=== PATIENT | female | born 1945 | race Caucasian/White ===

== ENCOUNTER 2020-12-14 09:28 | Emergency (ER) | payer MEDICARE, OTHER ==
[~2020-12-14] VITALS: Ht 162.6 cm; Wt 48.6 kg
--- NOTE | 2020-12-14 10:11 | NUR ---
PT WITH R FOOT SWELLING EXTENDING UP TO KNEE SINCE OCTOBER. PT SEEN AT ON 11/15, RECEIVED AND TOOK CEPHALEXIN PRESCRIBED WITH IMPROVEMENT OF SWELLING AND REDNESS. PT STATES SWELLING AND PAIN WORSENED YESTERDAY. PT ALSO REPORTS OF INTERMITTENT HAND PAIN AND SWELLING IN JOINTS. SON REPORTS OF PT "LOSING A LOT OF WEIGHT". PT STATES "I DON'T EAT A LOT". PT DENIES SOB OR CP. PT DENIES MEDICAL HX OR SURGERIES. PT HEAVY SMOKER. DP PULSES PALPABLE BILATERAL, DOPPLER PERFORMED WELL-WNL. WARM BLANKETS PROVIDED, CALL LIGHT WITHIN REACH.
[2020-12-14 10:24] LABS: BASOPHILS % (AUTO) 0 % (0-1); EOSINOPHILS % (AUTO) 1 % (1-7); LYMPHOCYTES % (AUTO) 14 % (22-44); MD NO; MEAN CORPUSCULAR HEMOGLOBIN 32.4 pg (27.0-34.8); MEAN PLATELET VOLUME 6.1 fL (7.4-10.4); MONOCYTES % (AUTO) 11 % (2-9); NEUTROPHILS % (AUTO) 74 % (42-75); PLATELET COUNT 400 x10^3/uL (130-400); RED BLOOD COUNT 3.89 x10^6/uL (3.82-5.3); RED CELL DISTRIBUTION WIDTH 12.2 % (9.6-15.2)
[2020-12-14 10:37] LABS: ANION GAP 4 mmol/L (5-15); CALCIUM 9.4 mg/dL (8.5-10.1); CHLORIDE 102 mmol/L (98-107)
[2020-12-14 10:38] LABS: CREATININE 0.67 mg/dL (0.55-1.02)
[2020-12-14 11:09] VITALS: BP 130/71
--- NOTE | 2020-12-14 11:09 | NUR ---
PT BACK FROM US. VS UPDATED IN COMPUTER.
--- NOTE | 2020-12-14 11:20 | NUR ---
ALL RESULTS BACK, PT FOR RECHECK.
== END 2020-12-14 11:51 | disposition home or self-care (01) ==
LOC: ED 10:11
DX: M13.171 Monoarthritis, not elsewhere classified, right ankle and foot (principal); M20.11 Hallux valgus (acquired), right foot; I82.491 Acute embolism and thrombosis of other specified deep vein of right lower extremity; F17.210 Nicotine dependence, cigarettes, uncomplicated
CPT/HCPCS: 36415; 80048; 82040; 84550; 85025; 99406

== ENCOUNTER → 2021-01-24 | Outpatient (CLI) | payer MEDICARE, OTHER | END | disposition home or self-care (01) | LOC: CFH 10:11 | PROVIDERS: ATTEND Family Medicine | DX: Z12.2 Encounter for screening for malignant neoplasm of respiratory organs (principal); R91.8 Other nonspecific abnormal finding of lung field; J98.4 Other disorders of lung; F17.210 Nicotine dependence, cigarettes, uncomplicated | CPT/HCPCS: 71271 ==